=== PATIENT | male | born 1970 | race Caucasian/White ===

== ENCOUNTER 2024-07-04 14:43 | Emergency (ER) | payer MEDICAID ==
[~2024-07-04] VITALS: Ht 170.2 cm; Wt 98.0 kg
[2024-07-04 14:49] VITALS: TEMP 36.8; O2SAT 97
[2024-07-04 17:32] VITALS: BP 151/87; PULSE 93; RESP 18; O2SAT 99
== END 2024-07-04 17:43 | disposition home or self-care (01) ==
LOC: EDBD 14:43 → ER 14:43
DX: F10.129 Alcohol abuse with intoxication, unspecified (principal); Z98.890 Other specified postprocedural states; Y90.9 Presence of alcohol in blood, level not specified
CPT/HCPCS: 99284

== ENCOUNTER 2024-07-11 10:02 | Emergency (ER) | payer MEDICAID ==
[~2024-07-11] VITALS: Ht 167.6 cm; Wt 125.0 kg
[2024-07-11 10:08] VITALS: BP 110/72; PULSE 91; RESP 16; TEMP 36.6; O2SAT 95
[2024-07-11 10:57] LABS: BASOPHILS % 0.4 % (0.0-2.0); EOSINOPHILS % 2.1 % (0.0-5.0); HEMATOCRIT. 43.8 % (42.0-52.0); HEMOGLOBIN. 14.4 g/dL (14.0-18.0); MEAN CORPUSCULAR HEMOGLOBIN 29.7 pg (28.0-32.0); MEAN CORPUSCULAR HGB CONC 32.9 g/dL (31.0-37.0); MEAN CORPUSCULAR VOLUME 90.1 fL (80.0-94.0); MEAN PLATELET VOLUME 8.4 fl (7.4-10.4); MONOCYTES % 10.6 % (2.0-8.0); NEUTROPHILS % 32.9 % (40.0-76.0); PLATELET 213 x1000/uL (130-400); RED BLOOD CELL COUNT 4.86 mill/uL (4.7-6.1); RED CELL DISTRIBUTION WIDTH 13.6 % (11.6-14.6); WHITE BLOOD COUNT 6.4 x1000/uL (4.5-11.0)
[2024-07-11 11:07] LABS: CHLORIDE 105 mEq/L (98-107); POTASSIUM 3.4 mEq/L (3.5-5.1); SODIUM 140 mEq/L (136-145)
[2024-07-11 11:08] LABS: CARBON DIOXIDE 22 mEq/L (21-32)
[2024-07-11 11:09] LABS: CALCIUM 8.6 mg/dL (8.7-10.4)
[2024-07-11 11:14] LABS: UREA NITROGEN BLOOD 10 mg/dL (9-23)
[2024-07-11 12:59] LABS: GLUCOSE 421 mg/dL (70-105)
[2024-07-11 13:00] LABS: ETHANOL BLOOD 420 mg/dL (<10)
[2024-07-11] MEDS ORDERED: INSULIN REGULAR (HUMULIN R) 1000UNITS/10ML VIAL SUBCUT ONE (13:15)
== END 2024-07-11 16:00 | disposition left against medical advice (07) ==
LOC: ER 10:02
DX: F10.129 Alcohol abuse with intoxication, unspecified (principal); E11.9 Type 2 diabetes mellitus without complications; I10 Essential (primary) hypertension; Y90.8 Blood alcohol level of 240 mg/100 ml or more
CPT/HCPCS: 80048; 80320; 85025; 36415; 93005; 99291; Z7610; A4606; G0480

== ENCOUNTER 2024-07-31 22:37 | Emergency (ER) | payer MEDICAID ==
[~2024-07-31] VITALS: Ht 167.6 cm; Wt 86.0 kg
[2024-07-31 22:40] VITALS: O2SAT 95
[2024-08-01 00:07] LABS: BASOPHILS % 0.7 % (0.0-2.0); EOSINOPHILS % 0.6 % (0.0-5.0); HEMATOCRIT. 43.4 % (42.0-52.0); HEMOGLOBIN. 14.4 g/dL (14.0-18.0); LYMPHOCYTES % 43.4 % (20.0-50.0); MEAN CORPUSCULAR HEMOGLOBIN 30.3 pg (28.0-32.0); MEAN CORPUSCULAR HGB CONC 33.1 g/dL (31.0-37.0); MEAN CORPUSCULAR VOLUME 91.4 fL (80.0-94.0); MONOCYTES % 7.1 % (2.0-8.0); NEUTROPHILS % 48.2 % (40.0-76.0); PLATELET 270 x1000/uL (130-400); RED BLOOD CELL COUNT 4.74 mill/uL (4.7-6.1); RED CELL DISTRIBUTION WIDTH 14.4 % (11.6-14.6)
[2024-08-01 00:12] LABS: CHLORIDE 107 mEq/L (98-107); POTASSIUM 3.4 mEq/L (3.5-5.1); SODIUM 142 mEq/L (136-145)
[2024-08-01 00:13] LABS: CARBON DIOXIDE 23 mEq/L (21-32)
[2024-08-01 00:18] LABS: GLUCOSE 348 mg/dL (70-105); UREA NITROGEN BLOOD 7 mg/dL (9-23)
[2024-08-01 00:29] LABS: ETHANOL BLOOD 345 mg/dL (<10)
[2024-08-01 03:13] VITALS: BP 124/86; PULSE 95; RESP 15; TEMP 36.6; O2SAT 99
== END 2024-08-01 03:25 | disposition home or self-care (01) ==
LOC: ER 22:37
DX: S00.03XA Contusion of scalp, initial encounter (principal); F10.129 Alcohol abuse with intoxication, unspecified; I67.82 Cerebral ischemia; Y90.8 Blood alcohol level of 240 mg/100 ml or more; X58.XXXA Exposure to other specified factors, initial encounter; Y93.89 Activity, other specified; Y92.89 Other specified places as the place of occurrence of the external cause; Y99.8 Other external cause status
CPT/HCPCS: 36415; 80048; 80320; 85025; 99284; G0480